=== PATIENT | female | born 1960 | race Caucasian/White ===

== ENCOUNTER 2019-01-12 06:00 | Day surgery (SDC) | payer OTHER ==
[2019-01-12] MEDS ORDERED: PROPOFOL 20 ML (08:11)
[2019-01-12] MEDS ORDERED: FENTAnyl 50 MCG/ML VIAL (08:11)
== END 2019-01-12 12:59 | disposition home or self-care (01) ==
LOC: GIL 06:00
DX: Z12.11 Encounter for screening for malignant neoplasm of colon (principal); K29.50 Unspecified chronic gastritis without bleeding; K44.9 Diaphragmatic hernia without obstruction or gangrene; K26.9 Duodenal ulcer, unspecified as acute or chronic, without hemorrhage or perforation; K57.30 Diverticulosis of large intestine without perforation or abscess without bleeding; I10 Essential (primary) hypertension
CPT/HCPCS: 43239; 88305; 88312